=== PATIENT | male | born 1955 | race Caucasian/White ===

== ENCOUNTER → 2017-01-25 | Outpatient (CLI) | payer OTHER ==
[~2017-01-25] MED LIST: ASPIRIN LO-DOSE81 MG PO; COQ-10100 MG PO; CYTOMEL25 MCG PO; ESTER-C 1,0001 EACH PO; LACTINEX (FLORA1 TAB PO; LANOXIN (DIGI125 MCG PO; LIALDA1.2 GM PO; LOPRESSOR25 MG PO; MAGNESIUM400 M1 PO; PRILOSEC20 MG PO; VITAMIN D35000 UNIT PO; XARELTO20 MG PO
== END | disposition disaster alternative care site (69) ==
LOC: GAMB 16:14
DX: M62.3 Immobility syndrome (paraplegic) (principal); Z95.818 Presence of other cardiac implants and grafts; Z99.81 Dependence on supplemental oxygen
CPT/HCPCS: A0425; A0426